=== PATIENT | female | born 1960 | race African-American/Black ===

== ENCOUNTER 2019-08-15 18:16 | Outpatient (CLI) | payer MEDICAID | END 2019-08-15 23:59 | disposition home or self-care (01) | LOC: D.MAMMO 18:16 | PROVIDERS: ATTEND Family Medicine | DX: Z12.31 Encounter for screening mammogram for malignant neoplasm of breast (principal) ==

== ENCOUNTER 2019-09-09 08:00 | Outpatient (CLI) | payer MEDICAID | END 2019-09-09 23:59 | disposition home or self-care (01) | LOC: D.MAMMO 08:00 | PROVIDERS: ATTEND Family Medicine | DX: R92.8 Other abnormal and inconclusive findings on diagnostic imaging of breast (principal) ==

== ENCOUNTER → 2020-03-11 08:22 | Outpatient (CLI) | payer MEDICAID ==
--- NOTE | 2020-03-14 08:56 | EC ---
PATIENT:ADRIANA BAUM DATE OF SERVICE: 03/11/20 SEX: F MEDICAL RECORD: [id number] DATE OF : 58 LOCATION:[facility] AGE OF PATIENT: 60 ADMISSION DATE: 03/11/20 REFERRING PHYSICIAN: INTERPRETING PHYSICIAN: HEIDI TABOR MD ECHOCARDIOGRAM REPORT ECHO CHARGES 4 ECHO COMPLETE Date: 03/11/20 CLINICAL DIAGNOSIS: HTN/ MITRAL AND TRISUCSPID REGURG ECHOCARDIOGRAPHIC MEASUREMENTS (adult normal given) AC root (d.<3.7cm) 2.9 cm LV Septum d (<1.2 cm> 0.90 cm Valve Excursion 1.3 cm LV Septum (systole) 1.3 cm Left Atria (s.<4.0cm> 4.1 cm LVPW d(<1.2cm) 1.1 cm RV (d.<2.3cm) 3.3 cm LVPW (sytole) 1.5 cm LV diastole(<5.6CM) 4.8 cm MV E-F(>70mm/sec) cm LV systole 3.2 cm LVOT Diameter 1.5 cm MV exc.(>10mm) 1.4 cm Est.ejection fraction (50-75%) % DOPPLER: LVIT cm/sec A 46.0 cm/sec E 57.0 cm/sec LA cm/sec RVSP 31 mmHg LVOT 109 cm/sec AOP1/2T m/s Asc. 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 Dye TAPE# PACS Pericardial Effusion N DATE OF SERVICE: Adequate 2D, color flow imaging, spectral Doppler, and M-Mode. No LVH. LV internal dimension is normal. Wall motion is normal. EF is greater than or equal to 55%. Aortic valve is sclerotic. There is no evidence of stenosis by Doppler interrogation. Left atrium is upper limits of normal and minimally dilated at 4.0 cm. Mitral valve shows no prolapse. Mild MR. Right-sided chambers are grossly normal. Mild plus TR. ECHOCARDIOGRAM REPORT [id number] ADRIANA BAUM TRANSINT:[id number] Voice Confirmation ID: [id number] DOCUMENT ID: [id number] HEIDI TABOR MD at 0856 CC: [id number] DICTATION DATE: 03/11/201419 DIRECTOR OF WOMEN'S SERVICES: 03/11/201918 DEP CLI 03/11/20 [facility] [address] [facility]
== END | disposition home or self-care (01) ==
LOC: D.HCCECHO 08:22
PROVIDERS: ATTEND Internal Medicine Interventional Cardiology
DX: I10 Essential (primary) hypertension (principal)

== ENCOUNTER → 2021-03-15 10:01 | Outpatient (CLI) | payer MEDICAID ==
--- NOTE | ~2021-03-15 | EC ---
PATIENT:ADRIANA BAUM DATE OF SERVICE: 03/15/21 SEX: F MEDICAL RECORD: [id number] DATE OF : 58 [facility]GE OF PATIENT: 61 ADMISSION DATE: 03/15/21 REFERRING PHYSICIAN: INTERPRETING PHYSICIAN: HEIDI TABOR MD ECHOCARDIOGRAM REPORT ECHO CHARGES 4 ECHO COMPLETE Date: 03/15/21 CLINICAL DIAGNOSIS: MITRAL REGURG ECHOCARDIOGRAPHIC MEASUREMENTS (adult normal given) AC root (d.<3.7cm) 2.9 cm LV Septum d (<1.2 cm> 1.1 cm Valve Excursion 1.6 cm LV Septum (systole) 1.3 cm Left Atria (s.<4.0cm> 3.8 cm LVPW d(<1.2cm) 1.1 cm RV (d.<2.3cm) 3.2 cm LVPW (sytole) 1.5 cm LV diastole(<5.6CM) 5.0 cm MV E-F(>70mm/sec) cm LV systole 3.4 cm LVOT Diameter 1.8 cm MV exc.(>10mm) 1.5 cm Est.ejection fraction (50-75%) % DOPPLER: LVIT cm/sec A 56.0 cm/sec E 44.0 cm/sec LA cm/sec RVSP 31 mmHg LVOT 96 cm/sec AOP1/2T m/s Asc. Ao 129 cm/sec RVOT 60 cm/sec RA cm/sec PA 95 cm/sec AV Gradient Peak 6.65 mmHg AV Mean 3.81 mmHg AV Area 2.0 cm MV Gradient Peak 2.01 mmHg MV Mean 0.72 mmHg MV Area cm COMMENTS: Podopediatrician: 2 YOSELYN POSADAS Resort Keeper: 3 Dr. Dye TAPE# PACS Pericardial Effusion N DATE OF SERVICE: Adequate 2D, color-flow imaging, spectral Doppler, and M-Mode. FINDINGS: No LVH. LV internal dimension is normal. Wall motion is normal. EF is greater than or equal to 55%. Aortic valve is sclerotic. No evidence of stenosis by Doppler interrogation. Left atrium is normal at 3.8 cm. Mitral valve shows no prolapse. Mild to moderate MR. Right side is grossly normal. Mild TR. ECHOCARDIOGRAM REPORT [id number] ADRIANA BAUM TRANSINT:[id number] Voice Confirmation ID: [id number] DOCUMENT ID: [id number] HEIDI TABOR MD CC: [id number] DICTATION DATE: 03/15/21 1533 METALIZING SUPERVISOR: 03/15/21 [address] [place] [id number] [place] [id number]
== END | disposition home or self-care (01) ==
LOC: D.HCCECHO 10:01
PROVIDERS: ATTEND Internal Medicine Interventional Cardiology
DX: I34.0 Nonrheumatic mitral (valve) insufficiency (principal)